=== PATIENT | male | born 1955 | race Two or more races ===

== ENCOUNTER 2018-06-11 06:07 | Day surgery (SDC) | payer MEDICARE, OTHER ==
[2018-06-07 12:32] LABS: Basophils # (auto) 0.1 uL; Basophils % (auto) 0.7 % (0.0-2.0); Eosinophils # (auto) 0.3 uL; Eosinophils % (auto) 3.1 % (0.0-7.0); Hematocrit 47.9 % (41.0-53.0); Lymphocytes # (auto) 2.7 uL; Lymphocytes % (auto) 33.1 % (10.0-50.0); Mean Corpuscular Hemoglobin 29.9 pg (28.0-32.0); Mean Corpuscular Hgb Conc. 33.4 g/dL (32.0-36.0); Mean Corpuscular Volume 89.7 fL (80.0-100.0); Monocytes # (auto) 0.9 uL; Monocytes % (auto) 11.3 % (0.0-12.0); Neutrophils # (auto) 4.3 uL; Neutrophils % (auto) 51.8 % (37.0-80.0); Nucleated Red Blood Cells % 0.1 %; Platelet Count (auto) 234 10^3/uL (140-450); Red Blood Cells 5.34 10^6/uL (4.5-5.90); Red Cell Distribution Width 13.9 % (11.8-14.3); White Blood Cell 8.2 10^3/uL (4.4-10.8)
[2018-06-07 12:40] LABS: Urine Bacteria NONE SEEN /hpf (None Seen); Urine Blood Negative /uL (Negative); Urine Specific Gravity 1.029 (1.001-1.035); Urine WBC 2 /hpf (0 - 3)
[2018-06-07 12:50] LABS: INR 0.98 (0.9-1.15); Partial Thromboplastin Time 27.8 sec (23.78-33.04); Prothrombin Time 10.5 sec (9.27-12.13)
[2018-06-07 13:03] LABS: Albumin 4.2 g/dL (3.4-5.0); BUN/Creatinine Ratio 26.7; Calcium 8.9 mg/dL (8.5-10.1)
[2018-06-07 13:06] LABS: Bilirubin, Total 0.4 mg/dL (0.2-1.0); Total Protein 7.4 g/dL (6.4-8.2)
[~2018-06-11] VITALS: Ht 170.2 cm; Wt 84.4 kg
[~2018-06-11 06:07] MED LIST: ARIP15TA6 PO; ASPI81TA27 PO; BENA20TA14 PO; BUPR100T14 PO; CARI-277 PO; INSU1INJ19 SC; LORA-205 PO; MAGN400T5 PO; METO-169 PO; OMEP20TA PO; TRIH2TAB3 PO
[2018-06-11] MEDS ORDERED: ceFAZolin 1GM/50ML 50 ML IV ONE (06:31)
[2018-06-11] MEDS ORDERED: PROPOFOL 10 MG/ML 20 ML IV ONE (08:12)
[2018-06-11] MEDS ORDERED: fentaNYL CITRATE 100 MCG/2 ML VL ONE (08:12)
[2018-06-11] MEDS ORDERED: MIDAZOLAM HCL 1MG/1ML-2 ML VIAL ONE (08:12)
[2018-06-11] MEDS ORDERED: SUCCINYLCHOLINE CHLORIDE 20 MG/ML 10ML VIAL IV ONE (08:13)
[2018-06-11] MEDS ORDERED: BUPIVACAINE W/ EPINEPH 0.25% INJ 50ML MDV ONE (09:09)
[2018-06-11] MEDS ORDERED: BETAMETHASONE ACET (6MG/ML) 5ML VIAL ONE (09:09)
[2018-06-11] MEDS ORDERED: ONDANSETRON HCL 4 MG/2 ML VIAL IV ONE (09:30)
[2018-06-11] MEDS ORDERED: hydrALAZINE HCL 20 MG/ML VL IV PRN (09:30)
[2018-06-11] MEDS ORDERED: ePHEDrine SULFATE 50 MG/ML AMP IV PRN (09:30)
[2018-06-11] MEDS: fentaNYL CITRATE 100 MCG/2 ML VL IV PRN ×3 (09:53→10:13)
[2018-06-11 10:24] VITALS: BP 144/97
== END 2018-06-11 10:40 | disposition home or self-care (01) ==
LOC: SUR 06:07
PROVIDERS: ATTEND Orthopaedic Surgery
DX: M23.221 Derangement of posterior horn of medial meniscus due to old tear or injury, right knee (principal); M65.861 Other synovitis and tenosynovitis, right lower leg; M22.41 Chondromalacia patellae, right knee; E11.9 Type 2 diabetes mellitus without complications; I10 Essential (primary) hypertension; Z88.5 Allergy status to narcotic agent; Z88.8 Allergy status to other drugs, medicaments and biological substances; Z98.890 Other specified postprocedural states; Z79.899 Other long term (current) drug therapy; Z98.1 Arthrodesis status; Z88.6 Allergy status to analgesic agent; Z79.4 Long term (current) use of insulin; F41.9 Anxiety disorder, unspecified; G89.29 Other chronic pain; M79.7 Fibromyalgia; Z98.52 Vasectomy status; Z83.3 Family history of diabetes mellitus; Z82.49 Family history of ischemic heart disease and other diseases of the circulatory system; Z80.9 Family history of malignant neoplasm, unspecified; J18.9 Pneumonia, unspecified organism; R05 Cough
CPT/HCPCS: 29876; 29879; 29881; 36415; 80053; 81001; 82962; 83036; 85025; 85610; 85730; J0330; J0690; J0702; J2250; J2704; J3010

== ENCOUNTER → 2019-02-22 | Outpatient (CLI) | payer MEDICARE, OTHER ==
[~2019-02-22] VITALS: Ht 171.4 cm; Wt 86.2 kg
[~2019-02-22] MED LIST changes: +ASPI-404 PO; -ASPI81TA27 PO
== END | disposition home or self-care (01) ==
LOC: Rad HDHVI 08:17
PROVIDERS: ATTEND Internal Medicine Cardiovascular Disease
DX: I10 Essential (primary) hypertension (principal); E11.40 Type 2 diabetes mellitus with diabetic neuropathy, unspecified
CPT/HCPCS: 78452; 82962; 93017; 93306; 96374; A9500

== ENCOUNTER → 2019-12-23 | Outpatient (CLI) | payer MEDICARE, OTHER ==
[~2019-12-23] MED LIST changes: -ASPI-404 PO; +ASPI-543 PO; +MAGN400T40 PO; -MAGN400T5 PO
== END | disposition home or self-care (01) ==
LOC: Rad HDHVI 11:13
PROVIDERS: ATTEND Internal Medicine Cardiovascular Disease
DX: I51.7 Cardiomegaly (principal); R06.02 Shortness of breath; R00.2 Palpitations
CPT/HCPCS: 93306

== ENCOUNTER → 2021-08-30 | Outpatient (CLI) | payer MEDICARE, OTHER ==
[~2021-08-30] MED LIST changes: +BUPR-160 PO; -BUPR100T14 PO; -METO-169 PO; +METO-289 PO
== END | disposition home or self-care (01) ==
LOC: Rad HDHVI 13:26
PROVIDERS: ATTEND Internal Medicine Cardiovascular Disease
DX: I08.1 Rheumatic disorders of both mitral and tricuspid valves (principal); R07.89 Other chest pain; R00.2 Palpitations
CPT/HCPCS: 93306

== ENCOUNTER → 2021-09-06 | Outpatient (CLI) | payer MEDICARE, OTHER ==
[~2021-09-06] VITALS: Ht 170.2 cm; Wt 84.8 kg
[~2021-09-06] MED LIST changes: +ADENOSINE 71 MG in GIVE UN-DILUTED 0 ML IV ONE; +ADENOSINE 90 MG/30 ML INJ IV ONE
== END | disposition home or self-care (01) ==
LOC: Rad HDHVI 12:53
PROVIDERS: ATTEND Internal Medicine Cardiovascular Disease
DX: R60.9 Edema, unspecified (principal); I10 Essential (primary) hypertension; E11.9 Type 2 diabetes mellitus without complications; Z82.49 Family history of ischemic heart disease and other diseases of the circulatory system
CPT/HCPCS: 78452; 93005; 96374; 96375; A9500; J0153

== ENCOUNTER → 2024-02-21 | Outpatient (CLI) | payer MEDICARE, OTHER ==
[~2024-02-21] MED LIST changes: -ADENOSINE 71 MG in GIVE UN-DILUTED 0 ML IV ONE; -ADENOSINE 90 MG/30 ML INJ IV ONE; +BENA-36 PO; -BENA20TA14 PO; -BUPR-160 PO; +BUPR-346 PO
--- NOTE | 2024-02-22 12:26 | DVHSR ---
APPROVED REPORT EXAM: Two-dimensional and M-mode echocardiogram with Doppler and color Doppler. DIMENSIONS LVDd3.7 (3.8-5.7cm)LA (2D)3.6 (1.9-4.0cm)Aortic Root3.6 (2.0-3.7cm) LVDs2.5 (2.5-4.0cm)LA (MM) (1.9-4.0cm)Aortic Cusp Exc1.8 (1.5-2.0cm) EF (%) 60.0 (55-70%)Rt. Atrium3.3 (1.9-4.0cm)Asc. Aorta cm IVSd1.3 (0.7-1.1cm)RV (D)3.2 (1.8-2.4cm) PWd1.3 (0.7-1.1cm) Mitral Valve MitralMitral Stenosis E wave0.76m/sMV Mean GR.mmHg A wave0.75m/sMV Peak GR.mmHg E/A ratio1.02D MVAcm2 DECEL [id number] 1/2 [place] Aortic Valve Aortic ValveAortic Stenosis V10.98m/Arthur Mean GR.3mmHg V21.25m/Arthur Peak GR.6mmHg LVOT Diameter2.1 (1.8-2.4cm)Doppler AVA2.71cm2 Pulmonic Valve V21.09m/s Tricuspid Valve TR Velocity2.09m/s [id number] LEFT VENTRICLE The left ventricle is normal size. There is mild concentric left ventricular hypertrophy. The left ventricle is normal in structure and function. The Ejection Fraction is within normal limits. RIGHT VENTRICLE The right ventricle is normal size. ATRIA The left atrial size is normal. The right atrium size is normal. The interatrial septum is intact with no evidence for an atrial septal defect. MITRAL VALVE The mitral valve is normal in structure. There is no mitral valve regurgitation noted. PULMONIC VALVE The pulmonic valve is not well visualized. TRICUSPID VALVE The tricuspid valve is grossly normal. There is mild tricuspid regurgitation. Right ventricular systolic pressure is less than 30 mmHg. AORTIC VALVE The aortic valve opens well. No aortic regurgitation is present. GREAT VESSELS The aortic root is normal size. PERICARDIAL EFFUSION There is no pericardial effusion. Other Information Technically limited study due to body habitus. Conclusion MILD TR EF >60% CONC LVH
== END | disposition home or self-care (01) ==
LOC: Rad HDHVI 13:49
PROVIDERS: ATTEND Internal Medicine Cardiovascular Disease
DX: Z01.810 Encounter for preprocedural cardiovascular examination (principal); I07.1 Rheumatic tricuspid insufficiency
CPT/HCPCS: 93306

== ENCOUNTER → 2024-02-28 | Outpatient (CLI) | payer MEDICARE, OTHER ==
[~2024-02-28] VITALS: Ht 170.2 cm; Wt 85.3 kg
[~2024-02-28] MED LIST changes: +ADENOSINE 72 MG in GIVE UN-DILUTED 0 ML IV ONE; +ADENOSINE 90 MG/30 ML INJ IV ONE
== END | disposition home or self-care (01) ==
LOC: Rad HDHVI 14:15
PROVIDERS: ATTEND Internal Medicine Cardiovascular Disease
DX: Z01.810 Encounter for preprocedural cardiovascular examination (principal); I11.0 Hypertensive heart disease with heart failure; I50.33 Acute on chronic diastolic (congestive) heart failure; R06.02 Shortness of breath; E11.40 Type 2 diabetes mellitus with diabetic neuropathy, unspecified; J44.9 Chronic obstructive pulmonary disease, unspecified; E78.5 Hyperlipidemia, unspecified; E11.21 Type 2 diabetes mellitus with diabetic nephropathy; Z82.49 Family history of ischemic heart disease and other diseases of the circulatory system
CPT/HCPCS: 78452; 93005; 96374; 96375; A9500; J0153